=== PATIENT | female | born 1975 | race Caucasian/White ===

== ENCOUNTER → 2020-10-22 10:15 | Outpatient (CLI) | payer OTHER, SELFPAY ==
[2020-10-22 20:26] LABS: Add Manual Diff / Slide Review NO; Basophils Absolute Auto 0 /uL (0-100); Basophils Percent Auto 0.7 % (0-2); Eosinophils Absolute Auto 100 /uL (0-450); Eosinophils Percent Auto 1.8 % (2-4); Hemoglobin 13.8 g/dL (12.0-16.0); Lymphocytes Absolute Auto 1500 /uL (1100-4500); Lymphocytes Percent Auto 28.5 % (25-40); Mean Corpuscular HGB Conc 33.6 % (30-36); Mean Corpuscular Hemoglobin 32.5 PG (26-34); Mean Corpuscular Volume 96.7 fL (80-100); Monocytes Absolute Auto 400 /uL (0-900); Monocytes Percent Auto 8.2 % (3-14); Neutrophils Absolute Auto 3200 /uL (1500-7000); Neutrophils Percent Auto 60.8 % (50-75); Platelet Count 288 X10^3/uL (150-400); Red Blood Cell Count 4.24 X10^6/uL (4.0-5.2); Red Cell Distribution Width 13.7 % (11.6-14.8); White Blood Cell Count 5.3 X10^3/uL (4.5-11.0)
[2020-10-22 20:30] LABS: Alanine Aminotransferase 18 IU/L (<35); Albumin 4.3 g/dL (3.5-5.0); Albumin Globulin Ratio 1.6 (1.0-2.8); Alkaline Phosphatase 54 U/L (38-126); Aspartate Aminotransferase 26 IU/L (14-36); BUN Creatinine Ratio 21.5 (6-22); Bilirubin Total 0.5 mg/dL (0.2-1.3); Blood Urea Nitrogen 17 mg/dL (7-17); Calcium 9.7 mg/dL (8.4-10.2); Carbon Dioxide 28 mmol/L (22-32); Chloride 104 mmol/L (98-107); Estimated Glomerular Filt Rate > 60.0 mL/min (>60); Globulin 2.7 g/dL (1.7-4.1); Glucose 94 mg/dL (70-100); HEMOLYSIS < 15 (0-50); Potassium 4.9 mmol/L (3.4-5.1); Sodium 136 mmol/L (137-145)
[2020-10-22 20:47] LABS: Free T4, Direct Thyroxine 1.61 ng/dL (0.78-2.19)
[2020-10-22 21:01] LABS: Thyroid Stimulating Hormone 0.788 uIU/mL (0.47-4.68)
== END ==
PROVIDERS: Family Provider Obstetrics & Gynecology; PCP Obstetrics & Gynecology; Visit Provider Family Medicine
DX: E03.9 Hypothyroidism, unspecified (principal); F41.9 Anxiety disorder, unspecified; S46.012A Strain of muscle(s) and tendon(s) of the rotator cuff of left shoulder, initial encounter; M70.62 Trochanteric bursitis, left hip
CPT/HCPCS: 80053; 84439; 84443; 85025

== ENCOUNTER → 2021-08-31 08:30 | Outpatient (CLI) | payer OTHER, SELFPAY ==
[2021-08-31 16:02] LABS: COVID19 -Nasal RAPID Negative (Negative)
== END ==
PROVIDERS: Family Provider Obstetrics & Gynecology; PCP Family Medicine; Visit Provider Obstetrics & Gynecology
DX: Z01.812 Encounter for preprocedural laboratory examination (principal); Z20.822 Contact with and (suspected) exposure to COVID-19
CPT/HCPCS: 87635

== ENCOUNTER 2021-09-02 14:30 | Observation (INO) | payer OTHER, SELFPAY ==
[2021-08-26 14:42] VITALS: BMI 23.1
[2021-09-01] VITALS (15 sets, daily range): BP systolic 108–142; BP diastolic 63–88; PULSE 68–102; RESP 14–20; TEMP 35.7–36.9; O2SAT 97–100; BMI 23.1
--- NOTE | 2021-09-01 | PATH_ITS ---
[facility] Accession Number: [id number] . 01 Material submitted: . uterus - UTERUS, BILATERAL FALLOPIAN TUBES . 01 Diagnosis: Uterus, Bilateral Fallopian Tubes, Hysterectomy and Bilateral Salpingectomy (Weight 160 grams): Cervix with no significant histomorphologic abnormality. Endocervix with no significant histomorphologic abnormality. Portions of proliferative endometrium; negative for glandular hyperplasia, cytologic atypia, or malignancy. Myometrium with intramural leiomyomas (up to 30 mm); negative for atypia or malignancy. Serosa with no signficiant histomorphologic abnormality. Right fallopian tube complete cross-section; negative for atypia or malignancy. Left fallopian tube complete cross sections; negative for atypia or malignancy. [facility] 09/07/2021 1405 Local . 01 Electronically signed: . Lisa Fernandez MD, Pathologist NPI- [id number] . 01 Gross description: . Received in formalin in a specimen container labeled with the patient's name and medical record number, uterus, bilateral fallopian tubes, is a 160 gram uterus with attached bilateral fallopian tubes and attached cervix that measure: uterus - 7.0 x 6.0 x 4.5 cm; cervix measures 3.0 cm in length and 3.0 cm in diameter; right fallopian tube measures 6.7 cm in length and 0.7 cm in diameter; right fimbriae measure 1.5 x 1.2 x 0.8 cm; the left fallopian tube measures 5.2 cm in length and 0.5 cm in diameter; left fimbriae measure 1.5 x 1.0 x 0.7 cm. The serosal surface is pink, smooth, and glistening. There is a prominent nodule within the uterine dome that measures 4.3 x 4.0 cm. The parametrium was cauterized and entirely inked in blue. The endocervical lip os is pink, smooth, glistening and grossly unremarkable. The resection margin is entirely inked in blue. The specimen is opened to reveal a herringbone, pink unremarkable cervical mucosa. The endometrial cavity is distorted by the dome leiomyoma and measures 3.5 x 0.5 cm. The endometrial cavity is slightly hemorrhagic. The dome leiomyoma measures 3.0 cm along the opened, cut surface. The cut surfaces are solid pink-brady without calcification or signs of nonviable tissue. Additional leiomyoma measures 1.5 cm is identified within the myometrium cut surfaces. The leiomyoma cut surfaces are pink, smooth, glistening, brady with a whorled pattern without calcification or signs of nonviable areas. The cut surfaces of myometrium are solid, pink, with a slightly irregular pattern. No other distinct lesions are grossly identified. The right fallopian tube serosal surface is pink, smooth, glistening and grossly unremarkable. Cut surfaces are patent, cylindrical with 0.2 cm unremarkable patent lumen. The left fallopian tube serosal surface is pink, smooth, glistening and cut surfaces are patent and cylindrical with 0.2 cm patent lumen. . Refrigerating Technician sections are submitted as follows: . A1-A2: Anterior and posterior cervix. A3: Endomyometrium full-thickness with leiomyoma. A4: Refrigerating Technician of unremarkable endomyometrium full thickness. A5: Dome leiomyoma players club representative. A6: Right fallopian tube and fimbriae. A7: Left fallopian tube and fimbriae. ([id number]) A8: Additional sections for endomyometrium. (KV:[id number]) /FRR 09/06/2021 [facility] Local . 01 Pathologist provided ICD-10: N81.4, R10.2, N81.6, D25.9 . 01 CPT . 601334 Specimen Comment: A courtesy copy of this report has been sent to [phone] Performed at: 01 [facility] [address] [place] [address], [place], [place] [id number] MD Mak Marte MD Phone: [phone]
[2021-09-01] MEDS: LACTATED RINGERS 1,000 ML 100 ML IV ×2 (08:40→14:52)
--- NOTE | 2021-09-01 09:14 | PM.PREOP ---
Pre-operative Note COVID-19 COVID-19 status: Negative Result date/Date tested (Pos, Neg/Pending): 08/31/21 Criteria for continued procedure: Delay expected to result in less-positive ultimate med/surg outcome and Non-surgical alternatives not available or appropriate per current SOC Interval Note History & Physical reviewed/Exam performed by Physician: Yes Changes to H&P: No H&P completed within 30 days and has changed as indicated here:: 08/09/21
[2021-09-01] MEDS: CEFAZOLIN 2 GM/20 ML SYRINGE IV (10:30)
--- NOTE | 2021-09-01 10:57 | SUR.OPER ---
Lithotomy on padded OR bed. [place] Pad Positioner under torso. Head on pillow, arms padded and tucked at sides. Legs secured in padded yellow fins stirrups with heels appropriately positioned. Directed and approved by surgeon.
--- NOTE | 2021-09-01 11:11 | SUR.OPER ---
Malin placed with ease, clear yellow urine was visualized in tubing prior to balloon inflation. Secured to thigh prior to leaving OR.
[2021-09-01] MEDS: BUPIVACAINE 0.5% W/ EPI (PF) 30 ML VIAL INJ (11:22)
--- NOTE | 2021-09-01 13:15 | P.OP_ITS ---
Operative Date/Time/Diagnoses Date of procedure: 09/01/21 Time of procedure: 13:15 Pre-op diagnosis: Symptomatic uterine prolapse Symptomatic cystocele and rectocele Post-op diagnosis: same Procedure & Clinicians Procedure: Procedures Operation Date: 09/01/21 09:45 Actual Procedure Side Surgeon p Laparoscopic Assisted Vag Hysterectomy w. bilateral salpingectomy Marianela Greenfield MD s Anterior and Posterior Repair, sacrospinus ligament fixation Marianela Greenfield MD Indications: Symptomatic uterine prolapse, cystocele, and rectocele Surgeon: Marianela Greenfield Health Informatics Advisor: Traci Garcia Anesthesia Type: General and Local Operative Notes Findings: 8 week size prolapsed uterus Normal tubes and ovaries Third-degree cystocele Third-degree rectocele Significant vaginal vault prolapse Closure Type: primary Specimen(s): left tube, right tube and uterus Applied: catheter (To continuous drainage) and other (Vaginal packing) Estimated blood loss (mL): 100 Blood products transfused: none Procedure in detail: The patient was taken to the operating room where she was placed in the dorsal supine position. After adequate general endotracheal anesthesia was achieved, she was placed in the dorsal lithotomy position, and prepped and draped in the usual sterile fashion. A bivalve speculum was placed into the vagina, and a single-tooth tenaculum was placed on the anterior lip of the cervix. The cervical os was sequentially dilated until the ZUMI uterine manipulator could pass easily into the endometrial cavity. The single-tooth tenaculum was removed from the anterior lip of the cervix, and the bivalve speculum was removed from the vagina. Attention was then turned to the abdomen where 6 mL of half percent Marcaine with epinephrine were injected in the umbilical fold. A 5 mm incision was made. The Veress needle was placed into the peritoneal cavity, and its placement confirmed by aspiration and drop test. The abdominal cavity was insufflated with 4 L of CO2. The Veress needle was removed, and a 5 mm trocar was placed without difficulty. Initial inspection of the pelvis revealed the findings noted above. 2 other incisions were made 4 cm lateral to the umbilicus after 6 cc of 0.5% Marcaine with epinephrine were injected. Two 5 mm trocars were placed under direct visualization. The right tube was grasped with an atraumatic grasper. The mesosalpinx on the right side was cauterized and cut with the power seal. The round ligament and broad ligament were cauterized and cut. This was continued to the level of the uterine arteries. This was repeated on the patient's left side. The instruments were removed from the abdomen. Attention was then turned to the vagina where the ZUMI uterine manipulator was removed from the uterus. The cervix was grasped with a 4 tooth tenaculum. 10 mL of quarter percent Marcaine with epinephrine were injected circumferentially around the cervix. The cervix was circumscribed. The bladder and rectum were dissected off the lower uterine segment and cervix with an open moistened Ray-Gosia. The peritoneum was entered sharply with the Metzenbaum scissors anteriorly and a [place] placed. The peritoneum was entered posteriorly with the Metzenbaum scissors and the long weighted speculum was placed into the posterior cul-de-sac. The uterosacral cardinal ligament complexes were clamped, transected, and suture ligated with 0 Vicryl. These were attached to hemostats. The uterine arteries were clamped, transected, and suture ligated with 0 Vicryl. The uterus was handed off for specimen with the tubes. The vaginal cuff was closed with 0 Vicryl with a series of simple interrupted sutures. The tagged sutures were cut. 2 Allis clamps were placed at the apex of the cystocele. 6 mL of half percent Marcaine with epinephrine were injected and an incision was made with a #10 blade between the 2 Allis clamps. Wide Allis clamps were placed on the midline of the cystocele approximately 7. The mucosa was undermined using the Metzenbaum scissors and the mucosa incised in the midline moving the wide Allis clamps to the edges of the mucosa. The mucosa was dissected off the underlying fascia using an open moistened Ray-Gosia and a #10 blade. The fascia was reapproximated with 0 Vicryl with a series of horizontal mattress sutures. The excess vaginal mucosa was excised. The mucosa was closed using simple interrupted sutures with 2-0 Vicryl including the underlying fascia to close the space. The weighted speculum was removed from the vagina. Allis clamps were placed at the mucocutaneous junction at the introitus. 6 mL of half percent Marcaine with epinephrine were injected. An incision was made with a #10 blade between the 2 Allis clamps, and a triangular piece of skin and underlying subcutaneous tissue was removed. Allis clamps were placed in the midline of the rectocele. 10 mL of half percent Marcaine with epinephrine were injected submucosally. The mucosa was undermined using the Metzenbaum scissors and the mucosa incised in the midline, moving the wide Allis clamps to the mucosal edges. The underlying fascia was dissected off of the mucosa using an open moistened Ray-Gosia and a #10 blade. The space around the sacral spinous ligament was dissected out bluntly by sweeping the adventitia to the midline. Using 2 0 Prolene suture, a stitch was placed 2 cm lateral to the ischial spine in the sacral spinous ligament. This was tagged with a hemostat. The other and the Prolene was placed through the most distal portion of the vaginal mucosa without coming through the entire mucosal layer. The fascia was reapproximated using 0 Vicryl with a series of horizontal mattress sutures. The excess vaginal mucosa was excised. The mucosa was closed using a series of simple interrupted sutures with 2-0 Vicryl including the underlying fascia to close the space. After the first 3 stitches were placed, the sacral spinous ligament stitch was tied down. This pulled the vagina back and to the right. The remainder of the mucosa was closed with 2-0 Vicryl simple interrupted sutures. On the perineum 0 Vicryl was used to reapproximate the levator muscle. The subcutaneous layer was closed with 2-0 Vicryl. The skin was closed with 3-0 chromic in a subcuticular fashion. Hemostasis was achieved. A Betadine moistened vaginal pack was placed into the vagina. A rectal exam was done and there were no sutures palpable in the rectum. The urine was clear. Sponge, lap, and instrument counts were correct x-2. The patient tolerated the procedure well, was taken to PACU in stable condition. Complications: none Post-operative Condition: stable Disposition: PACU Plan for aftercare: To acute care after recovery
[2021-09-01] MEDS: ONDANSETRON 4 MG/2 ML INJ IV (13:27)
[2021-09-01] MEDS: HYDROMORPHONE 2 MG INJ IV ×3 (13:27→13:47)
--- NOTE | 2021-09-01 14:19 | SUR.PHASEI ---
Pt A&Ox4, reports pain as tolerable, VSS, and ready to transfer to room. Report given to receiving RN using SBAR with time allowed for questions. Pt transferred via bed with RN assist. Spouse updated.
[2021-09-01] MEDS: KETOROLAC 30 MG/ML VIAL IV ×2 (14:52→20:02)
[2021-09-01] MEDS: OXYCODONE IR 5 MG TABLET PO ×2 (16:11→17:58)
[2021-09-01] MEDS: ACETAMINOPHEN 325 MG TABLET 650 MG PO (17:56)
[2021-09-01] MEDS: DOCUSATE 100 MG CAPSULE 200 MG PO (20:02)
[2021-09-01] MEDS: LORazepam 1 MG TABLET PO (20:02)
[2021-09-01] MEDS: HYDROMORPHONE 0.5 MG INJ IV (22:11)
[2021-09-02] VITALS: BP 112/69; PULSE 67; RESP 18; TEMP 36.2; O2SAT 98
[2021-09-02] MEDS: HYDROMORPHONE 0.5 MG INJ IV ×4 (01:19→11:30)
[2021-09-02] MEDS: LACTATED RINGERS 1,000 ML 100 ML IV (01:19)
[2021-09-02] MEDS: KETOROLAC 30 MG/ML VIAL IV ×2 (01:58→08:09)
[2021-09-02] MEDS: LEVOTHYROXINE 125 MCG TABLET PO (05:09)
[2021-09-02 05:33] VITALS: BP 115/69; PULSE 69; RESP 18; TEMP 36.6; O2SAT 98
[2021-09-02 05:34] LABS: Add Manual Diff / Slide Review NO; Basophils Absolute Auto 0 /uL (0-100); Basophils Percent Auto 0.1 % (0-2); Eosinophils Absolute Auto 0 /uL (0-450); Eosinophils Percent Auto 0.4 % (2-4); Hematocrit 31.6 % (36-46); Hemoglobin 11.2 g/dL (12.0-16.0); Lymphocytes Absolute Auto 1400 /uL (1100-4500); Lymphocytes Percent Auto 15.2 % (25-40); Mean Corpuscular HGB Conc 35.5 % (30-36); Mean Corpuscular Volume 93.2 fL (80-100); Monocytes Absolute Auto 700 /uL (0-900); Monocytes Percent Auto 7.8 % (3-14); Neutrophils Absolute Auto 7100 /uL (1500-7000); Neutrophils Percent Auto 76.5 % (50-75); Platelet Count 287 X10^3/uL (150-400); Red Blood Cell Count 3.39 X10^6/uL (4.0-5.2); Red Cell Distribution Width 13.1 % (11.6-14.8); White Blood Cell Count 9.3 X10^3/uL (4.5-11.0)
--- NOTE | 2021-09-02 05:41 | PC.NURSE ---
Catheter and vaginal packing removed without issue. No bleeding, clots, or drainage followed. Patient tolerated well.
[2021-09-02] MEDS: DOCUSATE 100 MG CAPSULE 200 MG PO ×2 (08:09→21:20)
--- NOTE | 2021-09-02 09:03 | CM.DANOTE ---
DCP Notes: Payor: Maegan PCP: MD Aden Pt is a 46 y.o. F who was admitted to the floor under [facility] following Hysterectomy. Pt DCP met with pt this morning bedside. Pt laying in bed with spouse at her side. Pt states that she is nauseous. DCP provided her with a emesis bag. Pt states that they took her arreola out this morning and that she is waiting to urinate. Pt states that she lives on [facility] with her spouse, Escobar, and is independent at baseline. Pt declines DME use and states that she still drives. Pt states that she is going to go home to her moms house in [place] following discharge in case she has any complications and needs to come back. Spouse will be driving pt there at discharge. Pt declines any resources at this time. DCP does not identify any needs. White board updated. Instructed to call with any questions. P: Once pt is medically stable for discharge. Pt will discharge to her moms house via spouse POV. Mare Ojeda RN/MARICRUZ Discharge Planning/Care Management CM Discharge Assessment Start: 09/02/21 08:41 Freq: Status: Active Protocol: Document 09/02/21 09:02 SABRINA (Rec: 09/02/21 09:02 AJ [id number]) Discharge Planning Assessment Assigned Customer Advisor Mare Ojeda RN/MARICRUZ Advance Directives? No History Provided By Patient Prior Living Arrangements House Household Members spouse Type of transporation used prior to Drives own vehicle admit Independent with ADL's Yes Is patient alert and oriented? Yes Barriers to Discharge No Discharge Plan Home Referrals Initiated None needed Whiteboard Updated in Patient Room with Yes name and ext. # of Customer Advisor Comment Instructed to call Review Status In Process Please Provide Date Initial DC 09/02/21 Assessment Was Performed Next Review Type Continued Stay Review Pre-Anesthesia Assessment Start: 08/26/21 14:42 Freq: Status: Complete Protocol: Document 08/26/21 14:42 CAB (Rec: 08/26/21 14:47 CAB [id number]) Pre-Anesthesia Assessment Patient Information Reviewed Via Chart Review Comment COVID screen @ 08/31/21 Primary Care Provider Kevyn Samaniego Seen Specialist in Last 12 Months Yes Specialist Seen Double End Sewer Primary Language Hungarian Grade Setter Required No Height 180.34 cm Weight 75.296 kg Body Mass Index (BMI) 23.1 Barriers to Learning None Anesthesia Review Requested No Food Cooking Machine Operator No Smoking Status Never smoker Pain Present Pain Reported Musculoskeletal Symptoms Joint Pain History of Falling (Recent or History of Yes ) Patient is completely paralyzed or No completely immobile Mental Status Oriented to own ability Is patient on oxygen? 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 No Cardiac Clearance Received Not Applicable Urinary Catheter Present No Hx Urinary Self Catheterization No Diabetes No Patient No Lactating No Marital Status Lives With spouse Patient Discharge Plan Description Return Home Comment Lives on [facility]
[2021-09-02 09:35] VITALS: BP 103/73; PULSE 67; RESP 16; TEMP 36.3; O2SAT 99
--- NOTE | 2021-09-02 14:59 | PC.NURSE ---
In and Out cath placed and 700ml light clear urine out, pt jeni well.
[2021-09-02] MEDS: HYDROMORPHONE 2 MG TABLET PO (15:11)
[2021-09-02] MEDS: IBUPROFEN 600 MG TABLET PO ×2 (15:50→21:20)
[2021-09-02] MEDS: ACETAMINOPHEN 325 MG TABLET 650 MG PO (18:28)
[2021-09-02 19:20] VITALS: BP 108/69; PULSE 72; RESP 18; TEMP 36.4; O2SAT 99
--- NOTE | 2021-09-02 22:12 | P.PN_ITS ---
Subjective Subjective Date Patient Seen: 09/02/21 Time Patient Seen: 19:30 Interval history: POD#1 s/p LAVH/Bilat salp/Anterior-Posterior repair/SSLP Has voided up to 200cc, but high residual volumes 400-700cc. Tolerating diet. No nausea/vomiting. Pain control has been an issue all day. Vaginal packing and arreola removed at 6 am this morning Exam Vital Signs (past 8 hours): - 09/02/21 19:20 09/02/21 19:00 Temperature 97.6 F Pulse Rate 72 Respiratory Rate 18 Blood Pressure 108/69 Pulse Oximetry 99 Oxygen Delivery Method Room Air Oxygen Flow Rate 0 Oxygen Delivery Method Room Air Oxygen Flow Rate 0 Narrative Exam Narrative: Generally: Sitting up in bed, no acute distress Lungs: CTA bilat CV: RRR ABD: Soft and flat. Good BS's Incisions: C/D/I with bandages Perineum: Dry Ext: Negative Moy's, no edema Objective Labs Result Diagrams: 09/02/21 05:05 Labs: Laboratory Results - last 24 hr 09/02/21 05:05 WBC 9.3 RBC 3.39 L Hgb 11.2 L Hct 31.6 L MCV 93.2 MCH 33.0 MCHC 35.5 RDW 13.1 Plt Count 287 Neut % (Auto) 76.5 H Lymph % (Auto) 15.2 L Traverse % (Auto) 7.8 Eos % (Auto) 0.4 L Baso % (Auto) 0.1 Neut # (Auto) 7100 H Lymph # (Auto) 1400 Traverse # (Auto) 700 Eos # (Auto) 0 Baso # (Auto) 0 PFSH Medical History (Updated 08/08/21 @ 18:17 by Marianela Greenfield MD) Greater trochanteric bursitis of left hip Strain of tendon of left rotator cuff Surgical History (Updated 10/20/20 @ 11:56 by Karie Ivan CMA) Hx of cosmetic surgery Status post dilation and curettage Status post hernia repair Social History household members: spouse Smoking Status: Never smoker alcohol intake: current Assessment & Plan Post-op Postoperative Procedures: Procedures Operation Date: 09/01/21 09:45 Actual Procedure Side Surgeon p Laparoscopic Assisted Vag Hysterectomy w. bilateral salpingectomy Marianela Greenfield MD s Anterior and Posterior Repair, sacrospinus ligament fixation Marianela Greenfield MD Postoperative day: 1 Postoperative status: urinary retention and marginal pain control Postoperative status narrative: High post void residual volumes Pain management issues Postoperative plan: voiding trials Postoperative plan narrative: Replace arreola Restart voiding trials in am Tramadol for pain Time Spent With Patient Time with patient: 15-24 minutes Quality VTE Deep Vein Thrombosis/Pulmonary Embolism Present on Admission: No
[2021-09-03 01:42] VITALS: BP 110/70; PULSE 74; RESP 18; TEMP 36.4; O2SAT 97
[2021-09-03] MEDS: ACETAMINOPHEN 325 MG TABLET 650 MG PO ×2 (01:44→11:44)
[2021-09-03] MEDS: TRAMADOL 50 MG TABLET 100 MG PO ×3 (02:22→11:44)
[2021-09-03] MEDS: IBUPROFEN 600 MG TABLET PO ×2 (06:45→13:41)
[2021-09-03] MEDS: LEVOTHYROXINE 125 MCG TABLET PO (06:45)
[2021-09-03 08:00] VITALS: BP 110/78; PULSE 74; RESP 17; TEMP 37.2; O2SAT 96
[2021-09-03] MEDS: DOCUSATE 100 MG CAPSULE 200 MG PO (08:13)
--- NOTE | 2021-09-03 12:07 | P.DS_ITS ---
History of Present Illness History of Present Illness Date Patient Seen: 09/03/21 Time Patient Seen: 08:45 Chief complaint: OPB Narrative: Patient is a 46-year-old postop day # 2 status post LAVH/bilateral salpingectomy/anterior-posterior repair/sacral spinous ligament fixation. Yesterday she had high postvoid residuals and had to have the catheter replaced. Her pain is under better control. She is tolerating a diet. No nausea or vomiting. She is ambulating without assistance. Discharge Providers Provider Date of admission: 09/02/21 14:30 Discharge Date: 09/03/21 Primary care physician: Kevyn Samaniego DO Discharge provider: Marianela Greenfield MD Summary Hospital Course Discharge Diagnosis: Uterine prolapse Cystocele and rectocele LAVH with bilateral salpingectomy Anterior and posterior repair Sacral spinous ligament fixation Acute urinary retention Hospital Course: Patient is a 46-year-old 2 para 2 postop day # 2 status post LAVH/bilateral salpingectomy/anterior-posterior repair/sacral spinous ligament fixation. On postop day # 1 she had high postvoid residuals and had to have the catheter replaced. She was able to void between 150 and 225. But had high pos tvoid residuals. The catheter was replaced on postop day # 1. The catheter was removed on postop day # 2. Patient voided 175 cc with 70 cc residual. Her pain is well controlled. No nausea or vomiting. She is ambulating without assistance. Minimal vaginal bleeding. Tolerating a diet. Status at Discharge Cognitive/behavioral status at discharge: oriented Functional status at discharge: independent ambulation Overall status at discharge: patient is progressing back to baseline Time Spent with Patient Time spent: Less than 30 minutes Exam Vital Signs (past 8 hours): - 09/03/21 08:00 Temperature 98.9 F Pulse Rate 74 Respiratory Rate 17 Blood Pressure 110/78 Pulse Oximetry 96 Oxygen Flow Rate 0 Oxygen Delivery Method Room Air Oxygen Flow Rate 0 Narrative Exam Narrative: Generally: Patient lying in bed, no acute distress Lungs: Clear to auscultation bilaterally Cardiovascular: Regular rate and rhythm Abdomen: 3 laparoscopy incisions with dressings in place. Good bowel sounds. Perineum: Dry Extremities: Negative Homans, no edema Objective Labs Result Diagrams: 09/02/21 05:05 [facility] Medical History (Updated 08/08/21 @ 18:17 by Marianela Greenfield MD) Greater trochanteric bursitis of left hip Strain of tendon of left rotator cuff Surgical History (Updated 10/20/20 @ 11:56 by Karie Ivan CMA) Hx of cosmetic surgery Status post dilation and curettage Status post hernia repair Social History household members: spouse Smoking Status: Never smoker alcohol intake: current Discharge Assessment & Plan Assessment and Plan Assessment: Assessment: 46-year-old status post LAVH/bilateral salpingectomy/anterior-posterior repair/sacral spinous ligament fixation Patient doing well on postop day # 2 Urinating without the catheter and low postvoid residuals Plan of Treatment: Plan: Discharge to home Follow-up in 2 weeks by telehealth Prescription sent to [facility] [place] No heavy lifting Patient to call with fever, chills, redness or drainage around the incisions, or bleeding vaginally more than spotting to light Discharge Plan Discharge Plan Patient Disposition: Home Provider Discharge Comment: Call with fever, chills, redness or drainage around the incisions, or bleeding vaginally more than spotting to light Stool softener for 6 weeks Tylenol 650 mg every 6 hours Ibuprofen 600 mg every 6 hours, taken with food or milk No heavy lifting, nothing more than 8 lb. Discharge orders & Medications Prescriptions: New tramadol 100 mg tablet 100 mg PO Q4-6H PRN (Reason: pain) Qty: 20 0RF Rx Instructions: DNExceed 4 doses/24h hydromorphone [Dilaudid] 2 mg tablet 2 mg PO Q4H PRN (Reason: pain) Qty: 20 0RF Continued levothyroxine 125 mcg tablet 125 mcg PO DAILY Qty: 90 3RF lorazepam 1 mg tablet 1 mg PO DAILY PRN (Reason: anxiety) Qty: 20 0RF Rx Instructions: TAKE 1 TABLET (1 MG) BY MOUTH DAILY NEEDED FOR ANXIETY. diclofenac sodium [Arthritis Pain (diclofenac)] 1 % gel 2 g topical QID Rx Instructions: apply to single elbow, wrist or hand; for hand includes palm/fingers/back of hand Discontinued oxycodone 5 mg tablet 5 mg PO Q4H PRN (Reason: pain) Qty: 14 0RF Follow up/Referrals: Marianela Greenfield MD [Family Provider] - (My office will call on Nolan September 05, 2021 to schedule postop visit) Diet/Activity/Treatments Diet: Regular Activity: No heavy lifting, nothing more than a gal of milk Other treatments: Go to the bathroom every 2 to 3 hours. Set an alarm at night to get up and go to the bathroom. Skin/Wound/Dressing Care Report to your healthcare provider any signs of infection, such as:: chills, fever, increased pain, unusual drainage and unusual redness Dressing: Remove outer pink dressings with attached gauze on Sunday morning after a shower Leave Steri-Strips in place until they fall off or 2 week Visit Report/Discharge Packet Instructions: DI for Cystocele and Rectocele Repair, DI for Hysterectomy, DI for Laparoscopy, DI for Nausea -- Adult, DI for Prescription Opioid Use, DI for Taking Pain Medication, DI for Vaginal Hysterectomy Discharge Data Primary Care Provider: Kevyn Samaniego Attending Provider: Marianela Greenfield VTE Deep Vein Thrombosis/Pulmonary Embolism Present on Admission: No
--- NOTE | 2021-09-03 12:38 | CM.DPC ---
DCP Note Cont: Per MD, pt is medically stable for discharge. Pt has been able to void today. Pt will discharge home via spouse POV to her mothers house in . Mare Ojeda RN/DCP
--- NOTE | 2021-09-03 14:50 | PC.NURSE ---
Dea removed this am. Vd 150mls, PVR was 72, about an hour had another and PVR which were about the same. Dr. Greenfield called and given results. Pt can go home. Tolerates diet w/out problems. Po pain meds effective. Up and amb in room without problems. Feels ready to d/c to home. Reviewed d/c packet and pt was told to void frequntly even at night, set an alarm. Questions answered. Pt d/c to home w/spouse. Priority load pass given.
== END 2021-09-03 14:45 | disposition home or self-care (01) ==
LOC: OR 14:41 → AC 14:41
PROVIDERS: Admitting Provider Obstetrics & Gynecology; Family Provider Obstetrics & Gynecology; PCP Family Medicine; Referring Provider Obstetrics & Gynecology; Visit Provider Obstetrics & Gynecology
PROC: 0UT9FZZ Resection of Uterus, Via Natural or Artificial Opening With Percutaneous Endoscopic Assistance (ICD-10-PCS; CPT 57260; principal; 2021-09-01 09:45)
PROC: (CPT 57260; 2021-09-01 09:45)
DX: N81.3 Complete uterovaginal prolapse (principal); E03.9 Hypothyroidism, unspecified
CPT/HCPCS: 57260; 58552; 36415; 85025; G0378; J0690; J1100; J1170; J1885; J2250; J2405; J2704; J3010

== ENCOUNTER → 2021-10-24 11:37 | Outpatient (CLI) | payer OTHER, SELFPAY ==
[2021-09-01 14:22] VITALS: BMI 23.1
[2021-10-24 19:43] LABS: Add Manual Diff / Slide Review NO; Basophils Absolute Auto 0 /uL (0-100); Basophils Percent Auto 0.6 % (0-2); Eosinophils Absolute Auto 100 /uL (0-450); Eosinophils Percent Auto 2.2 % (2-4); Hematocrit 37.9 % (36-46); Hemoglobin 13.2 g/dL (12.0-16.0); Lymphocytes Absolute Auto 1700 /uL (1100-4500); Lymphocytes Percent Auto 28.5 % (25-40); Mean Corpuscular HGB Conc 34.7 % (30-36); Mean Corpuscular Hemoglobin 32.9 PG (26-34); Mean Corpuscular Volume 94.7 fL (80-100); Monocytes Absolute Auto 500 /uL (0-900); Monocytes Percent Auto 8.3 % (3-14); Neutrophils Absolute Auto 3500 /uL (1500-7000); Neutrophils Percent Auto 60.4 % (50-75); Platelet Count 291 X10^3/uL (150-400); Red Cell Distribution Width 13.3 % (11.6-14.8); White Blood Cell Count 5.8 X10^3/uL (4.5-11.0)
[2021-10-24 20:35] LABS: TSH w/ Reflex to FT4 1.09 uIU/mL (0.47-4.68)
== END ==
PROVIDERS: Family Provider Obstetrics & Gynecology; PCP Family Medicine; Visit Provider Family Medicine
DX: D64.9 Anemia, unspecified (principal); E03.9 Hypothyroidism, unspecified; F41.9 Anxiety disorder, unspecified; Z90.710 Acquired absence of both cervix and uterus
CPT/HCPCS: 84443; 85025

== ENCOUNTER 2021-12-07 13:06 | Emergency (ER) | payer OTHER, SELFPAY ==
[2021-09-01 14:22] VITALS: BMI 23.1
[2021-12-07 14:02] LABS: Bacteria Urine None Seen; RBC Urine 0-1/HPF (0-5/HPF); Squamous Epithelial Cell Urine 5-10 /HPF (0-5/HPF); WBC Urine None Seen (0-5/HPF)
== END 2021-12-07 13:36 | disposition home or self-care (01) ==
LOC: ED 12-08 07:59
PROVIDERS: Emergency Medicine; Family Provider Family Medicine; PCP Family Medicine; Referring Provider Obstetrics & Gynecology
DX: R10.2 Pelvic and perineal pain (principal)
CPT/HCPCS: 81015; 87086; 99281

== ENCOUNTER → 2021-12-12 12:47 | Outpatient (CLI) | payer OTHER, SELFPAY ==
[2021-12-07 17:23] VITALS: BMI 23.1
--- NOTE | 2021-12-12 12:48 | DI.MRI.S_ITS ---
PROCEDURE: MR PELIS WO/W CON INDICATIONS: Tailbone pain TECHNIQUE: Coronal HASTE, sagittal T2 FSE, axial T1 FSE. Axial dynamic VIBE during administration of contrast. Post-contrast axial and coronal VIBE/2-D FLASH with fat saturation from the iliac crests to the symphysis. Diffusion weighted imaging and ADC were also performed. COMPARISON: None. FINDINGS: Image quality: Excellent. Bowel and peritoneum: No pathologic free pelvic fluid. Inferior colon and small bowel loops are normal in caliber. Genitourinary system: Bladder wall is normal in thickness. Distal ureters are non distended. Status post hysterectomy. There is a 1.2 cm right adnexal simple cyst. A 0.7 cm simple left adnexal cyst is also seen. Nodes and vessels: No pathologic pelvic or inguinal adenopathy by size criteria. Iliac vessels are normal in caliber. Soft tissues: No inguinal hernias. Bones: No acute osseous contusion or fracture. No suspicious marrow replacing mass or abnormal osseous enhancement. There is chronic osseous fusion of the coccygeal vertebral bodies and the lower sacral vertebral bodies. Degenerative changes are seen in the included portions of the lower lumbar spine with disc desiccation and facet hypertrophy. Sacroiliac joints are intact. Mild degenerative changes at the pubic symphysis. Hips appear symmetric. IMPRESSION: 1. No acute osseous or soft tissue abnormality identified in the pelvis. No source for patient's pain identified. No suspicious enhancing mass. 2. Degenerative changes noted in the included lumbar spine. 3. Bilateral small simple appearing adnexal cysts. Dictated by: Heladio Mcgarry M.D. on 12/13/2021 at 8:30 Approved by: Heladio Mcgarry M.D. on 12/13/2021 at 8:42
== END ==
PROVIDERS: Family Provider Family Medicine; PCP Family Medicine; Referring Provider Obstetrics & Gynecology; Visit Provider Obstetrics & Gynecology
DX: M53.3 Sacrococcygeal disorders, not elsewhere classified (principal); M47.816 Spondylosis without myelopathy or radiculopathy, lumbar region; R10.2 Pelvic and perineal pain; N94.89 Other specified conditions associated with female genital organs and menstrual cycle; G89.29 Other chronic pain
CPT/HCPCS: 72197; A9579

== ENCOUNTER → 2021-12-27 11:36 | Outpatient (CLI) | payer OTHER, SELFPAY ==
[2021-09-01 14:22] VITALS: BMI 23.1
[2021-12-07 17:23] VITALS: BMI 23.1
--- NOTE | 2021-12-27 | DI.MG.S_ITS ---
BILATERAL DIGITAL SCREENING MAMMOGRAM 3D/2D WITH CAD: 12/27/2021 CLINICAL: Routine screening. Family history of breast cancer. Comparison is made to exams dated: 06/29/2016 mammogram, 06/29/2016 ultrasound - [facility], and 12/21/2015 mammogram - [facility]. Both breasts are heterogeneously dense, which may obscure small masses (category c / 51-75% glandular tissue). Current study was also evaluated with a Computer Aided Detection (CAD) system. There is a focal asymmetry in the right breast at 5 o'clock in the retroareolar region. No other significant masses, calcifications, or other findings are seen in either breast. IMPRESSION: INCOMPLETE: NEEDS ADDITIONAL IMAGING EVALUATION The focal asymmetry in the right breast is indeterminate. Additional views with possible ultrasound are recommended. Based on the Tyrer Cuzick model (a risk assessment model) the patient's lifetime risk is 12.5% and her 10 year risk is 2.5%. According to the ACR, ACS, and NCCN guidelines, an annual breast MRI exam along with mammogram is recommended if the patient's lifetime risk is 20% or greater. This exam was interpreted at Station ID: [id number]. NOTE: For mammograms, a report in lay terms will be sent to the patient. Approximately 15% of breast malignancies will not be visualized mammographically. In the management of a palpable breast mass, a negative mammogram must not discourage biopsy of a clinically suspicious lesion. Electronically Signed By: Alexandra dixon/:12/28/2021 13:59:40 letter sent: Additional Imaging Needed ACR BI-RADS Category 0: Incomplete 3340F
== END ==
PROVIDERS: Family Provider Family Medicine; PCP Family Medicine; Referring Provider Family Medicine; Visit Provider Family Medicine
DX: Z12.31 Encounter for screening mammogram for malignant neoplasm of breast (principal); Z80.3 Family history of malignant neoplasm of breast
CPT/HCPCS: 77063; 77067

== ENCOUNTER 2022-01-03 13:45 | Outpatient (RCR) | payer OTHER, SELFPAY ==
[2021-09-01 14:22] VITALS: BMI 23.1
[2021-12-07 17:23] VITALS: BMI 23.1
--- NOTE | 2021-12-27 19:58 | PT.OIE ---
Current Diagnoses Constipation, unspecified (12/27/21) Pain in unspecified hip (12/27/21) Sacrococcygeal disorders, not elsewhere classified (12/27/21) Pelvic and perineal pain (12/27/21) Past Surgical History (Last Reviewed 12/07/21 @ 13:05 by MARIA A Jauregui) Hx of cosmetic surgery Status post dilation and curettage Status post hernia repair Visit Care Team Role Provider Type Arturo Marks MD Family Provider Physician Primary Care Provider Specialty: Family Practice Address: [address] [place] [address], [id number] Email: [email or web address] Marianela Greenfield MD Attending Provider Physician Referring Provider Specialty: Gynecology 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 Max 25/year PT/OT/ST. Visit Start Time 13:00 Visit Stop Time 13:52 Total Visit Minutes 52 Visit Number 03/03 Evaluation Information Evaluation Date 12/27/21 Precautions Precautions PMH Review: Hx of L hip greater trochanteric bursitis. Pt reported 2 vaginal deliveries with coccyx fractures. PT-OP-B Current Condition Start: 12/22/21 19:08 Freq: Status: Active Protocol: Document 12/27/21 13:00 LRN (Rec: 12/27/21 19:47 LRN [id number]) Current Condition History of Current Condition Onset Date 09/01/21 Current Complaints Severe sharp burning pain in the pelvis. History of Current Condition States almost 4 months ago she had a hysterectomy with rectocele and cystocele fix using sacrospinous ligs for repair. Pt now reports coccyx pain. Pt reports initially felt really good and started to play tennis and golf after 2 months, but after 1 week of exercise had onset of fire pain at coccyx radiating into the front of her hips after moving around. Had to sit on donut to alleviates the coccyx pain. Thought scar tissue pain or pudendal nerve entrapped in suture, but Pudendal n. block didn't help. She now uses Advil every 6 hrs. Doesn't want to take Gabapentin. Was leaking urine and feces prior to surgery but s/p surgery has not urine or fecal leakage. Prior Treatments and Tests Advil 600 mg 3x/day since every 6 hrs. Sometimes Tramidol to sleep. No physical therapy prior to surgery, but has had therapy in the past for her incontinence. Developmental History Developmental History Pt is 2 para 2. She reports: coccyx fx during childrenbearing x 2 that eventually resolved, and that X-rays showed fusion of coccyx . Pt states 09/01/21 - status post LAVH/bilateral salpingectomy/anterior- posterior repair/sacral spinous ligament fixation. Treatment Goals Patient/Caregiver Goals Pt goal is: - Decrease Pelvic Pain after sitting, improve sleep, Resume activity with pain 1-2/10. Personal Factors Other Personal Factors That May Effect Pt lives on [facility] with Therapy/Recovery spouse and 2 teenage daughters . 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 PT-OP-C Subjective Start: 12/22/21 19:08 Freq: Status: Active Protocol: Document 12/27/21 13:00 LRN (Rec: 12/27/21 19:47 LRN [id number]) OP-PT Subjective Patient Comments Patient Comments Hasn't taken Advil today. If moves, has sharp firing pain in coccyx radiating to anterior hips. Pain walking, but no pain after sitting ~ 8 minutes. Has pain in entire PF sometimes in bed. No longer leaks urine when coughing. Patient Questionnaires Pelvic Pain and Urgency/Frequency Patient Symptom Scale Pelvic Pain Score 16 OP-PT Pain Assessment Pain Assessment Grid Paper Pain Assessment Grid Completed Yes Location Pelvis Pain Location Details Posterior: SIJ to Coccyx, Anterior: ASIS wrapping around to coccyx L>R Intensity 9 Scale Used Numeric (0 - 10) Description Sharp,Shooting,Stabbing Description- Other No pain with sit rest, severe pain on standing and walking Pain Aggravating Factors Changing Position,Exercise, Standing,Walking Other Pain Aggravating Factors Moving around in bed Pain Alleviating Factors Medication Other Pain Alleviating Factors Advil Comments Pain Comments Pain starts at coccyx and is described as stabbing sharp pain. PT-OP-I Pelvic Floor Start: 12/22/21 19:08 Freq: Status: Active Protocol: Document 12/27/21 13:00 LRN (Rec: 12/27/21 19:47 N [id number]) Pelvic Floor Assessment Urine Pelvic Floor Surgery Yes Other Urinary Symptoms Cystocele repair. Feels a little pressure in lower abdomen. No urinary symptoms Bowel Other Bowel Symptoms Constipation controlled by medication (Miralax). S/P Rectocele repair. Pelvic Clock Pelvic Clock 9-12 Tenderness Pelvic Clock Other Tender superficially: 7-8 of PF Clock. Contraction Ability Manual Muscle Testing Left 1 Manual Muscle Testing Right 3 Manual Muscle Testing Anterior 3 Manual Muscle Testing Posterior 1 Muscle Endurance (Seconds) 10 Comments Pelvic Floor Comments Quick Flicks felt 10x except at PF clock 6-7 O'Clock. Palpation: Pt is most tender medial to her Ischial Tuberosities (Obturator Internus), SIJ's, and at tip of Coccyx. She has mild tenderness of her Piriformis and Gluteal muscles. No significatn tenderness at her anus. PT-OP-J Posture/Palpation/Skin Start: 12/22/21 19:08 Freq: Status: Active Protocol: Document 12/27/21 13:00 LRN (Rec: 12/27/21 19:47 N [id number]) Palpation Assessment Location Coccyx Palpation Location Tip of Coccyx Palpation Findings Tenderness Palpation Details No significant tenderness at sides of coccyx. Obturator Internus Palpation Location Bilateral Obturator Internus Palpation Findings Tenderness Palpation Details Hooklie SIJ Palpation Location Bilateral SIJ (L>R) Palpation Details In Sitting. PT-OP-K Range of Motion Start: 12/22/21 19:08 Freq: Status: Active Protocol: Document 12/27/21 13:00 LRN (Rec: 12/27/21 19:47 N [id number]) Lumbar Spine Range of Motion Lumbar Spine Active Degrees Testing Position Standing Flexion 7 Extension 0 Rotation Left 20 Rotation Right 15 Lateral Flexion Left 7 Lateral Flexion Right 2 ROM Limitations Pain Comments Active trunk flex tolerated to 90 deg's but w/pain Hip Goniometric Range of Motion Hip Right Passive Testing Position Supine Flexion w/Knee Flexed 120 Straight Leg Raise 90 Internal Rotation 30 External Rotation 65 Comments R IR decreased. Flex hip restriction Pain on lowering leg from SLR Left Passive Testing Position Supine Flexion w/Knee Flexed 120 Straight Leg Raise 90 Internal Rotation 30 External Rotation 40 Comments Flex hip restriction Pain on lowering leg from SLR PT-OP-M Strength Start: 12/22/21 19:08 Freq: Status: Active Protocol: Document 12/27/21 13:00 LRN (Rec: 12/27/21 19:47 LRN [id number]) Hip Strength Hip Manual Muscle Testing Right Flexion (L2) 5 Normal External Rotation 4 Good Internal Rotation 3 Fair Left Flexion (L2) 5 Normal External Rotation 4 Good Internal Rotation 3 Fair Comments Pain limits mobility PT-OP-Q Treatments Start: 12/22/21 19:08 Freq: Status: Active Protocol: Document 12/27/21 13:00 LRN (Rec: 12/27/21 19:47 LRN [id number]) Self-Care/Home Management Treatment Education Patient Education Home Exercise Program,Pain Management Other Education Discussed results of evaluation, goals, and plan of care (POC). Pt agreeable to goals and POC. Educated/discussed posturing for sleeping (pillow btn knees ) and sitting with back rest. Discussed use of heat for pain management. Activities Self-Care/Home Management Activities I/S pt in Sit<>Stand with isometric hip AB/ER. PT-OP-T Assessment and Plan Start: 12/22/21 19:08 Freq: Status: Active Protocol: Document 12/27/21 13:00 LRN (Rec: 12/27/21 19:47 LRN [id number]) Physical Therapy Assessment Rehab Potential Rehabilitation Potential Good Evaluation Complexity Number of Personal Factors/Comorbidities 1-2 Number of Body Systems Impaired 3 Clinical Presentation at Evaluation Evolving Impairments Impairments Activity Tolerance,Edema,Pain, Soft Tissue Mobility Goals Three Impairment Interrupted sleep and decreased mobility due to pain Impairment Sleeps 2-3 hours at night due to pain. Pain 9/10 when moving after sitting or with walking Short Term Goal (STG) Improve sleep with pt able to sleep throught the night 7 hour or more. STG Duration 02/12/22 Logging Assistant Goal (LTG) Decrease Pelvic Pain after sitting when coming to a stand or with walking, pain rated 1 -2/10. LTG Duration 03/27/22 Two Impairment Pain 0/10 Impairment Pain 9/10 Short Term Goal (STG) Pt will be educated in relaxation technique of deep breathing to decrease pain 50% . STG Duration 02/12/22 Logging Assistant Goal (LTG) Decrease SIJ and ASIS pain with pt able to resume activity with pain no greater than 1-2/10. LTG Duration 03/27/22 One Impairment Lacks self care and independent HEP. Short Term Goal (STG) Pt will be educated in proper sitting/standing posture. STG Duration 02/12/22 Residential Goal (LTG) Pt will be independent with a self care HEP and educated in proper body mechanics for ADLs . LTG Duration 03/27/22 Assessment Summary Assessment Pt is a 46 yo female, 2 para 2, who presents ~ 3 months s/p surgery for hysterectomy, cystocele and rectocele repair. She presents with soft tissue dysfunction of the PF and mechanical dysfunction of the pelvis/LB with notable L SIJ dysfunction and pain with trunk mobility. The pt is quite tender in her SI joints (L>R) and Obturator Internus. L hip rotation mobilty is more restricted than R hip, but soft tissue tightness appears to be the primary limiting factor in her mobiity . She appears less tender at her coccyx. The pt has a history of constipation that may be a factor in her in pelvic pain. The pt most likely has excessive edema and soft tissue irritation causing her pain primarily with palpation and activity; therefore rehabilitation may take longer than expected, but due to her restrictive insurance limit rehabilitation will probably be hindered. The pt will benefit from skilled physical therapy to achieve the above stated goals . Physical Therapy Plan Frequency and Duration Frequency of Treatment 1x/Week Plan of Care Start Date 12/27/21 Plan of Care End Date 03/27/22 Therapeutic Interventions Therapeutic Interventions Home Exercise Program,Joint Mobilizations,Manual Therapy, Neuromuscular Re-education, Patient/Caregiver Education, Self-Care/Home Management,Soft Tissue Mobilization,Taping, Therapeutic Activities, Therapeutic Exercises Modalities Cold Pack/Ice Massage,Electric Stimulation,Hot Packs, Ultrasound Next Visit Focus/Plan Next Note Type Treatment Note Next Visit Plan Pelvic Pain/SIJ pain rehab. Assess posture, and response to willy hip AB/ER with sit<> stand and use of heat for pain . Pt to try use of ice if no change in pain. Fascial release of PF at/ around R Obturator Internus, L SIJ, LB. Complete hip and core strength assess, and assess for DR. Pt education in bowel management. Gentle stretch to hip rotators , lateral hip and LB (KTC, not Hamstrings due to norm mobility). ?US to decrease PF inflammation: Medial to OI and L SIJ. Check for pelvic positional dysfunction and sacral balance if needed. Core/sacral stabilization. Body mechanics/posture training.
--- NOTE | 2021-12-27 19:59 | PT.OPPOC ---
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 Obstetrics Address: [address] [place] [address], [address] Email: [email or web address] Plan Of Care PT-OP-T Assessment and Plan Start: 12/22/21 19:08 Freq: Status: Active Protocol: Document 12/27/21 13:00 LRN (Rec: 12/27/21 19:47 LRN [id number]) Physical Therapy Assessment Rehab Potential Rehabilitation Potential Good Evaluation Complexity Number of Personal Factors/Comorbidities 1-2 Number of Body Systems Impaired 3 Clinical Presentation at Evaluation Evolving Impairments Impairments Activity Tolerance,Edema,Pain, Soft Tissue Mobility Goals Three Impairment Interrupted sleep and decreased mobility due to pain Impairment Sleeps 2-3 hours at night due to pain. Pain 9/10 when moving after sitting or with walking Short Term Goal (STG) Improve sleep with pt able to sleep throught the night 7 hour or more. STG Duration 02/12/22 Mcc Goal (LTG) Decrease Pelvic Pain after sitting when coming to a stand or with walking, pain rated 1 -2/10. LTG Duration 03/27/22 Two Impairment Pain 0/10 Impairment Pain 9/10 Short Term Goal (STG) Pt will be educated in relaxation technique of deep breathing to decrease pain 50% . STG Duration 02/12/22 Mcc Goal (LTG) Decrease SIJ and ASIS pain with pt able to resume activity with pain no greater than 1-2/10. LTG Duration 03/27/22 One Impairment Lacks self care and independent HEP. Short Term Goal (STG) Pt will be educated in proper sitting/standing posture. STG Duration 02/12/22 Cook Fish And Chips Goal (LTG) Pt will be independent with a self care HEP and educated in proper body mechanics for ADLs . LTG Duration 03/27/22 Assessment Summary Assessment Pt is a 46 yo female, 2 para 2, who presents ~ 3 months s/p surgery for hysterectomy, cystocele and rectocele repair. She presents with soft tissue dysfunction of the PF and mechanical dysfunction of the pelvis/LB with notable L SIJ dysfunction and pain with trunk mobility. The pt is quite tender in her SI joints (L>R) and Obturator Internus. L hip rotation mobilty is more restricted than R hip, but soft tissue tightness appears to be the primary limiting factor in her mobiity . She appears less tender at her coccyx. The pt has a history of constipation that may be a factor in her in pelvic pain. The pt most likely has excessive edema and soft tissue irritation causing her pain primarily with palpation and activity; therefore rehabilitation may take longer than expected, but due to her restrictive insurance limit rehabilitation will probably be hindered. The pt will benefit from skilled physical therapy to achieve the above stated goals . Physical Therapy Plan Frequency and Duration Frequency of Treatment 1x/Week Plan of Care Start Date 12/27/21 Plan of Care End Date 03/27/22 Therapeutic Interventions Therapeutic Interventions Home Exercise Program,Joint Mobilizations,Manual Therapy, Neuromuscular Re-education, Patient/Caregiver Education, Self-Care/Home Management,Soft Tissue Mobilization,Taping, Therapeutic Activities, Therapeutic Exercises Modalities Cold Pack/Ice Massage,Electric Stimulation,Hot Packs, Ultrasound Next Visit Focus/Plan Next Note Type Treatment Note Next Visit Plan Pelvic Pain/SIJ pain rehab. Assess posture, and response to willy hip AB/ER with sit<> stand and use of heat for pain . Pt to try use of ice if no change in pain. Fascial release of PF at/ around R Obturator Internus, L SIJ, LB. Complete hip and core strength assess, and assess for DR. Pt education in bowel management. Gentle stretch to hip rotators , lateral hip and LB (KTC, not Hamstrings due to norm mobility). ?US to decrease PF inflammation: Medial to OI and L SIJ. Check for pelvic positional dysfunction and sacral balance if needed. Core/sacral stabilization. Body mechanics/posture training. Plan of Care Dates Plan of Care Start Date 12/27/21 Plan of Care End Date 03/27/22 Electronically Signed by: Alexandra Springer, PT 12/27/21 1959 If you are in agreement with this Plan of Care, please return a signed and dated copy. I have reviewed this Plan of Care and certify that the skilled therapy services above are required to meet the patient?s needs. Physician Signature Date Printed Name and Credentials Clinical Instructor Signature Printed Name and Credentials
--- NOTE | 2022-01-03 17:23 | PT.OTN ---
Current Diagnoses Constipation, unspecified (01/03/22) Pain in unspecified hip (01/03/22) Sacrococcygeal disorders, not elsewhere classified (01/03/22) Pelvic and perineal pain (01/03/22) Physical Therapy Treatment Note PT-OP-A Visit Information Start: 12/22/21 19:08 Freq: Status: Active Protocol: Document 01/03/22 13:51 LRN (Rec: 01/03/22 17:20 LRN [id number]) Out-Patient Physical Therapy Visit Information Visit Information Visit Type Treatment Note Visit Start Time 13:51 Visit Stop Time 14:33 Total Visit Minutes 42 Visit Number 2/6 Evaluation Information Evaluation Date 12/27/21 Precautions Precautions PMH Review: Hx of L hip greater trochanteric bursitis. Pt reported 2 vaginal deliveries with coccyx fractures. PT-OP-B Current Condition Start: 12/22/21 19:08 Freq: Status: Active Protocol: Document 12/27/21 13:00 LRN (Rec: 12/27/21 19:47 LRN [id number]) Current Condition History of Current Condition Onset Date 09/01/21 Current Complaints Severe sharp burning pain in the pelvis. History of Current Condition States almost 4 months ago she had a hysterectomy with rectocele and cystocele fix using sacrospinous ligs for repair. Pt now reports coccyx pain. Pt reports initially felt really good and started to play tennis and golf after 2 months, but after 1 week of exercise had onset of fire pain at coccyx radiating into the front of her hips after moving around. Had to sit on donut to alleviates the coccyx pain. Thought scar tissue pain or pudendal nerve entrapped in suture, but Pudendal n. block didn't help. She now uses Advil every 6 hrs. Doesn't want to take Gabapentin. Was leaking urine and feces prior to surgery but s/p surgery has not urine or fecal leakage. Prior Treatments and Tests Advil 600 mg 3x/day since every 6 hrs. Sometimes Tramidol to sleep. No physical therapy prior to surgery, but has had therapy in the past for her incontinence. Developmental History Developmental History Pt is 2 para 2. She reports: coccyx fx during childrenbearing x 2 that eventually resolved, and that X-rays showed fusion of coccyx . Pt states 09/01/21 - status post LAVH/bilateral salpingectomy/anterior- posterior repair/sacral spinous ligament fixation. Treatment Goals Patient/Caregiver Goals Pt goal is: - Decrease Pelvic Pain after sitting, improve sleep, Resume activity with pain 1-2/10. Personal Factors Other Personal Factors That May Effect Pt lives on [facility] with Therapy/Recovery spouse and 2 teenage daughters . 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 PT-OP-C Subjective Start: 12/22/21 19:08 Freq: Status: Active Protocol: Document 01/03/22 13:51 LRN (Rec: 01/03/22 17:20 LRN [id number]) OP-PT Subjective Patient Comments Patient Comments Shooting pain with moving. Last night no sleep, no comfortable position. Sharp, piercing and shocking, firing pain in coccyx radiating to anterior hips. Pt reports after last appt she rested and was feeling better, so she went to a alliance party did some mild hip mvmt dancing and by the end of the evening was miserable and has been in a lot of pain since. PT-OP-I Pelvic Floor Start: 12/22/21 19:08 Freq: Status: Active Protocol: Document 12/27/21 13:00 LRN (Rec: 12/27/21 19:47 LRN [id number]) Pelvic Floor Assessment Urine Pelvic Floor Surgery Yes Other Urinary Symptoms Cystocele repair. Feels a little pressure in lower abdomen. No urinary symptoms Bowel Other Bowel Symptoms Constipation controlled by medication (Miralax). S/P Rectocele repair. Pelvic Clock Pelvic Clock 9-12 Tenderness Pelvic Clock Other Tender superficially: 7-8 of PF Clock. Contraction Ability Manual Muscle Testing Left 1 Manual Muscle Testing Right 3 Manual Muscle Testing Anterior 3 Manual Muscle Testing Posterior 1 Muscle Endurance (Seconds) 10 Comments Pelvic Floor Comments Quick Flicks felt 10x except at PF clock 6-7 O'Clock. Palpation: Pt is most tender medial to her Ischial Tuberosities (Obturator Internus), SIJ's, and at tip of Coccyx. She has mild tenderness of her Piriformis and Gluteal muscles. No significatn tenderness at her anus. PT-OP-J Posture/Palpation/Skin Start: 12/22/21 19:08 Freq: Status: Active Protocol: Document 12/27/21 13:00 LRN (Rec: 12/27/21 19:47 LRN [id number]) Palpation Assessment Location Coccyx Palpation Location Tip of Coccyx Palpation Findings Tenderness Palpation Details No significant tenderness at sides of coccyx. Obturator Internus Palpation Location Bilateral Obturator Internus Palpation Findings Tenderness Palpation Details Hooklie SIJ Palpation Location Bilateral SIJ (L>R) Palpation Details In Sitting. PT-OP-K Range of Motion Start: 12/22/21 19:08 Freq: Status: Active Protocol: Document 12/27/21 13:00 LRN (Rec: 12/27/21 19:47 LRN [id number]) Lumbar Spine Range of Motion Lumbar Spine Active Degrees Testing Position Standing Flexion 7 Extension 0 Rotation Left 20 Rotation Right 15 Lateral Flexion Left 7 Lateral Flexion Right 2 ROM Limitations Pain Comments Active trunk flex tolerated to 90 deg's but w/pain Hip Goniometric Range of Motion Hip Right Passive Testing Position Supine Flexion w/Knee Flexed 120 Straight Leg Raise 90 Internal Rotation 30 External Rotation 65 Comments R IR decreased. Flex hip restriction Pain on lowering leg from SLR Left Passive Testing Position Supine Flexion w/Knee Flexed 120 Straight Leg Raise 90 Internal Rotation 30 External Rotation 40 Comments Flex hip restriction Pain on lowering leg from SLR PT-OP-M Strength Start: 12/22/21 19:08 Freq: Status: Active Protocol: Document 12/27/21 13:00 LRN (Rec: 12/27/21 19:47 LRN [id number]) Hip Strength Hip Manual Muscle Testing Right Flexion (L2) 5 Normal External Rotation 4 Good Internal Rotation 3 Fair Left Flexion (L2) 5 Normal External Rotation 4 Good Internal Rotation 3 Fair Comments Pain limits mobility PT-OP-Q Treatments Start: 12/22/21 19:08 Freq: Status: Active Protocol: Document 01/03/22 13:51 LRN (Rec: 01/03/22 17:20 LRN [id number]) Therapeutic Exercises Prone Exercises TA tightening Prone Exercise Name TA tightening - transferring prone to stand Comments v cuing needed NOVA Prone Exercise Name NOVA with pt on pillow Reps/Minutes 5x Manual Therapy Treatment Soft Tissue Mobilization Obturatur Internus Body Location Bilateral OI Mobilization Type Sustained Pressure,Trigger Point Release Intensity/Depth Superficial Body Position Prone on pillow Comments R OI released quickly L OI responded but didn't fully release until Sustained pressure at R L4-L5 Trp's. QL Body Location R QL at Lumbar spine Mobilization Type Sustained Pressure Intensity/Depth Superficial>Moderate Body Position Prone on pillow Comments Noteable relaxation of L OI with R QL treatment. Gluteals/Piriformis Body Location Gluteals/Piriformis, L>R Mobilization Type Strumming Intensity/Depth Superficial>Moderate Body Position Prone on pillow Lumbar Paraspinals Body Location Lumbar Paraspinals, L>R Mobilization Type Strumming Intensity/Depth Superficial>Moderate Body Position Prone on pillow Joint Mobilizations Sacrum Direction Extension of Sacrum Grade I Reps/Duration Throughout treatment Comments Pt treatment: Prone on pillow Manual Traction L5-S1 Details Sacral distraction from L5 Comments Pt treatment: Prone on pillow Relieve of pain with manual sacral distraction Self-Care/Home Management Treatment Education Patient Education Pain Management,Posture Other Education Educated pt in pain management with discussion on negative effects of progression of activity too quickly, placing stress/strain on body/LB- pelvis. Encouraged pt to focus on pain relief via activity modification ( reducing sitting, driving, lifting, carrying, etc...) and recommended increase use of modalities of cryotherapy and heat to decrease pain. Educated pt in proper sitting posture with use of small roll behind the small of the back for support during sitting. Activities Self-Care/Home Management Activities I/S pt become more aware of possible effects of activities before doing them and recommended minimal activity until pain decreases, followed by slow increase in activity whether she feels pain or not. Educated pt in proper sitting posture and use of TA/Core to stabilize lumbopelvic region during movement. I/S pt to walk with smaller step lengths I/S pt to carry objects at umbilical level to reduce LB strain. I/S pt in use of relaxation technique of deep breathing to help decrease pain. PT-OP-T Assessment and Plan Start: 12/22/21 19:08 Freq: Status: Active Protocol: Document 01/03/22 13:51 LRN (Rec: 01/03/22 17:20 LRN [id number]) Physical Therapy Assessment Goals Three Impairment Interrupted sleep and decreased mobility due to pain Impairment Sleeps 2-3 hours at night due to pain. Pain 9/10 when moving after sitting or with walking Short Term Goal (STG) Improve sleep with pt able to sleep throught the night 7 hour or more. STG Duration 02/12/22 Emergency Room Tech Goal (LTG) Decrease Pelvic Pain after sitting when coming to a stand or with walking, pain rated 1 -2/10. 01/03/22: Educated pt in use of core stabilization for pain management. Pt able to avoid sharp shooting pain after treatment upon sit<>stand with TA tight. LTG Duration 03/27/22 (Progressing 01/03/22 ) Two Impairment Pain 0/10 Impairment Pain 9/10 Short Term Goal (STG) Pt will be educated in relaxation technique of deep breathing to decrease pain 50% . \ 01/03/22: I/S pt in use of deep breathing for relaxation and to help with pain management. STG Duration 02/12/22 (Progressing ) Emergency Room Tech Goal (LTG) Decrease SIJ and ASIS pain with pt able to resume activity with pain no greater than 1-2/10. LTG Duration 03/27/22 One Impairment Lacks self care and independent HEP. Short Term Goal (STG) Pt will be educated in proper sitting/standing posture. 01/03/22: Pt educated in proper sitting posture. STG Duration 02/12/22 (Progressing 01/03/22 ) Fci Goal (LTG) Pt will be independent with a self care HEP and educated in proper body mechanics for ADLs . LTG Duration 03/27/22 Assessment Summary Assessment Pt presents ~ 3 months s/p surgery for hysterectomy, cystocele and rectocele repair . She shows signs of possible lumbar involvement with reduction of pain on gentle L5 -S1 traction, by gentle distraction of sacrum. Pt also finds some relief of low back discomfort mobilizing sacrum into extension. Pt pain centralized to LB after treatment but fairly quickly began to radiate down the LLE. Pt was able to manage some of her pain by abdominally bracing and core stabilizing. Unfortunately, her traveling on the [facility] back and forth from [facility] may hinder her ability to progress . The pt has a lot of soft tissue dysfunction that is causing low tolerance to therapy; therefore preventing further special testing. Physical Therapy Plan Frequency and Duration Frequency of Treatment 1x/Week Plan of Care Start Date 12/27/21 Plan of Care End Date 03/27/22 Next Visit Focus/Plan Next Note Type Treatment Note Next Visit Plan ?L5-S1 dysfunction/Pelvic Pain /SIJ pain rehab. Assess response to willy hip AB/ER with sit<>stand and use of heat for pain. Pt to try use of ice if no change in pain. Complete hip and core strength assess, and assess for DRNela Fascial release of PF around del: Obturator Internus, QL, Iliopsoas, L SIJ, LB. Pt education in bowel management. Gentle stretch to hip rotators , lateral hip and LB (KTC, not Hamstrings due to norm mobility). ?US to decrease PF inflammation: Medial to OI and L SIJ. Check for pelvic positional dysfunction and sacral balance if needed. Core/sacral stabilization. Body mechanics/posture training.
--- NOTE | 2022-04-21 16:41 | PT.OPDS ---
Current Diagnoses Constipation, unspecified (01/03/22) Pain in unspecified hip (01/03/22) Sacrococcygeal disorders, not elsewhere classified (01/03/22) Pelvic and perineal pain (01/03/22) Visit Care Team Role Provider Type Arturo Marks MD Family Provider Physician Primary Care Provider Specialty: Family Practice Address: [address] [place] [address], [id number] Email: [email or web address] Marianela Greenfield MD Attending Provider Physician Referring Provider Specialty: Gynecology [employer] Obstetrics Address: [address] [place] [address], [address] Email: [email or web address] Visit Number Visit Number 04/03 Discharge Summary PT-OP-B Current Condition Start: 12/22/21 19:08 Freq: Status: Active Protocol: Document 12/27/21 13:00 LRN (Rec: 12/27/21 19:47 LRN [id number]) Current Condition History of Current Condition Onset Date 09/01/21 Current Complaints Severe sharp burning pain in the pelvis. History of Current Condition States almost 4 months ago she had a hysterectomy with rectocele and cystocele fix using sacrospinous ligs for repair. Pt now reports coccyx pain. Pt reports initially felt really good and started to play tennis and golf after 2 months, but after 1 week of exercise had onset of fire pain at coccyx radiating into the front of her hips after moving around. Had to sit on donut to alleviates the coccyx pain. Thought scar tissue pain or pudendal nerve entrapped in suture, but Pudendal n. block didn't help. She now uses Advil every 6 hrs. Doesn't want to take Gabapentin. Was leaking urine and feces prior to surgery but s/p surgery has not urine or fecal leakage. Prior Treatments and Tests Advil 600 mg 3x/day since every 6 hrs. Sometimes Tramidol to sleep. No physical therapy prior to surgery, but has had therapy in the past for her incontinence. Developmental History Developmental History Pt is 2 para 2. She reports: coccyx fx during childrenbearing x 2 that eventually resolved, and that X-rays showed fusion of coccyx . Pt states 09/01/21 - status post LAVH/bilateral salpingectomy/anterior- posterior repair/sacral spinous ligament fixation. Treatment Goals Patient/Caregiver Goals Pt goal is: - Decrease Pelvic Pain after sitting, improve sleep, Resume activity with pain 1-2/10. Personal Factors Other Personal Factors That May Effect Pt lives on [facility] with Therapy/Recovery spouse and 2 teenage daughters . 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 PT-OP-C Subjective Start: 12/22/21 19:08 Freq: Status: Active Protocol: Document 01/03/22 13:51 LRN (Rec: 01/03/22 17:20 LRN [id number]) OP-PT Subjective Patient Comments Patient Comments Shooting pain with moving. Last night no sleep, no comfortable position. Sharp, piercing and shocking, firing pain in coccyx radiating to anterior hips. Pt reports after last appt she rested and was feeling better, so she went to a alliance party did some mild hip mvmt dancing and by the end of the evening was miserable and has been in a lot of pain since. PT-OP-I Pelvic Floor Start: 12/22/21 19:08 Freq: Status: Active Protocol: Document 12/27/21 13:00 LRN (Rec: 12/27/21 19:47 LRN [id number]) Pelvic Floor Assessment Urine Pelvic Floor Surgery Yes Other Urinary Symptoms Cystocele repair. Feels a little pressure in lower abdomen. No urinary symptoms Bowel Other Bowel Symptoms Constipation controlled by medication (Miralax). S/P Rectocele repair. Pelvic Clock Pelvic Clock 9-12 Tenderness Pelvic Clock Other Tender superficially: 7-8 of PF Clock. Contraction Ability Manual Muscle Testing Left 1 Manual Muscle Testing Right 3 Manual Muscle Testing Anterior 3 Manual Muscle Testing Posterior 1 Muscle Endurance (Seconds) 10 Comments Pelvic Floor Comments Quick Flicks felt 10x except at PF clock 6-7 O'Clock. Palpation: Pt is most tender medial to her Ischial Tuberosities (Obturator Internus), SIJ's, and at tip of Coccyx. She has mild tenderness of her Piriformis and Gluteal muscles. No significatn tenderness at her anus. PT-OP-J Posture/Palpation/Skin Start: 12/22/21 19:08 Freq: Status: Active Protocol: Document 12/27/21 13:00 LRN (Rec: 12/27/21 19:47 LRN [id number]) Palpation Assessment Location Coccyx Palpation Location Tip of Coccyx Palpation Findings Tenderness Palpation Details No significant tenderness at sides of coccyx. Obturator Internus Palpation Location Bilateral Obturator Internus Palpation Findings Tenderness Palpation Details Hooklie SIJ Palpation Location Bilateral SIJ (L>R) Palpation Details In Sitting. PT-OP-K Range of Motion Start: 12/22/21 19:08 Freq: Status: Active Protocol: Document 12/27/21 13:00 LRN (Rec: 12/27/21 19:47 LRN [id number]) Lumbar Spine Range of Motion Lumbar Spine Active Degrees Testing Position Standing Flexion 7 Extension 0 Rotation Left 20 Rotation Right 15 Lateral Flexion Left 7 Lateral Flexion Right 2 ROM Limitations Pain Comments Active trunk flex tolerated to 90 deg's but w/pain Hip Goniometric Range of Motion Hip Right Passive Testing Position Supine Flexion w/Knee Flexed 120 Straight Leg Raise 90 Internal Rotation 30 External Rotation 65 Comments R IR decreased. Flex hip restriction Pain on lowering leg from SLR Left Passive Testing Position Supine Flexion w/Knee Flexed 120 Straight Leg Raise 90 Internal Rotation 30 External Rotation 40 Comments Flex hip restriction Pain on lowering leg from SLR PT-OP-M Strength Start: 12/22/21 19:08 Freq: Status: Active Protocol: Document 12/27/21 13:00 LRN (Rec: 12/27/21 19:47 LRN [id number]) Hip Strength Hip Manual Muscle Testing Right Flexion (L2) 5 Normal External Rotation 4 Good Internal Rotation 3 Fair Left Flexion (L2) 5 Normal External Rotation 4 Good Internal Rotation 3 Fair Comments Pain limits mobility PT-OP-T Assessment and Plan Start: 12/22/21 19:08 Freq: Status: Active Protocol: Document 04/21/22 16:34 LRN (Rec: 04/21/22 16:41 LRN [id number]) Physical Therapy Assessment Goals Three Impairment Interrupted sleep and decreased mobility due to pain Impairment Sleeps 2-3 hours at night due to pain. Pain 9/10 when moving after sitting or with walking Short Term Goal (STG) Improve sleep with pt able to sleep throught the night 7 hour or more. STG Duration 02/12/22 (04/21/22: NOT GOAL MET) Representative Personal Service Goal (LTG) Decrease Pelvic Pain after sitting when coming to a stand or with walking, pain rated 1 -2/10. 01/03/22: Educated pt in use of core stabilization for pain management. Pt able to avoid sharp shooting pain after treatment upon sit<>stand with TA tight. LTG Duration 03/27/22 (Progressing 01/03/22 , 04/21/22: NOT GOAL MET) Two Impairment Pain 0/10 Impairment Pain 9/10 Short Term Goal (STG) Pt will be educated in relaxation technique of deep breathing to decrease pain 50% . \ 01/03/22: I/S pt in use of deep breathing for relaxation and to help with pain management. STG Duration 02/12/22 (Progressing , 04/21/22: NOT GOAL MET) Usp Goal (LTG) Decrease SIJ and ASIS pain with pt able to resume activity with pain no greater than 1-2/10. LTG Duration 03/27/22 (04/21/22: NOT GOAL MET) One Impairment Lacks self care and independent HEP. Short Term Goal (STG) Pt will be educated in proper sitting/standing posture. 01/03/22: Pt educated in proper sitting posture. STG Duration 02/12/22 (Progressing 01/03/22 , 04/21/22: NOT GOAL MET) Usp Goal (LTG) Pt will be independent with a self care HEP and educated in proper body mechanics for ADLs . LTG Duration 03/27/22 (04/21/22: NOT GOAL MET) Assessment Summary Assessment Pt was seen for 1 treatment visit on 01/03/22. She had called and left message that she will be seen at the clinic on the [place] and was waiting on MRI results. Pt has not returned for further therapy and her plan of care . The pt is being discharged from therapy. The pt will need a new referral to return for her hysterectomy , cystocele and rectocele repair physical therapy rehab. Physical Therapy Plan Discharge Physical Therapy Discharge Reasons No Longer Attending PT Discharge Comments Thank you for your referral.
== END 2022-04-24 09:43 | disposition home or self-care (01) ==
LOC: PHYS 13:45
PROVIDERS: Family Provider Family Medicine; PCP Family Medicine; Referring Provider Obstetrics & Gynecology; Visit Provider Obstetrics & Gynecology
DX: R10.2 Pelvic and perineal pain (principal); M53.3 Sacrococcygeal disorders, not elsewhere classified; K59.00 Constipation, unspecified; M25.559 Pain in unspecified hip
CPT/HCPCS: 97140; 97162; 97535

== ENCOUNTER → 2022-01-18 16:38 | Outpatient (CLI) | payer OTHER, SELFPAY ==
[2021-12-07 17:23] VITALS: BMI 23.1
--- NOTE | 2022-01-18 16:44 | DI.MRI.S_ITS ---
PROCEDURE: MR LUMBAR SPINE WO CON INDICATIONS: ADD VIEWS RIGHT/LUMBAR FORAMINAL STENOSIS TECHNIQUE: Noncontrast sagittal T1 spin echo and T2 fast echo, sagittal STIR, and T2 fast spin echo through the lumbar spine. In cases with scoliosis, additional coronal T2 fast spin echo may be performed. COMPARISON: None. FINDINGS: Image quality: Excellent. Alignment and Curvature: Trace grade 1 anterior stone of spondylolisthesis L4-5 Bone Marrow: Marrow is of normal overall signal. No acute vertebral body compression fractures. Spinal Cord: Conus medullaris terminates at the L1 level. Visualized cord demonstrates normal signal and size. Paraspinous Soft Tissues: No paravertebral masses. T12-L1: Normal appearance. L1-L2: Normal appearance. L2-L3: Normal appearance. L3-L4: Normal appearance. L4-L5: Disc height is maintained. Mild circumferential disc bulge and hypertrophic facet joints results in mild central stenosis. No foraminal stenosis L5-S1: Disc space narrowing and hypertrophic facet joints present. No central stenosis. No foraminal stenosis IMPRESSION: Mild degenerative disc disease and arthropathy without significant central or foraminal stenosis Approved by: Demetrio Yu M.D. on 01/18/2022 at 17:15
== END ==
PROVIDERS: Family Provider Family Medicine; PCP Family Medicine; Referring Provider Physical Medicine & Rehabilitation Pain Medicine; Visit Provider Physical Medicine & Rehabilitation Pain Medicine
DX: M48.061 Spinal stenosis, lumbar region without neurogenic claudication (principal); M51.36 Other intervertebral disc degeneration, lumbar region; M47.816 Spondylosis without myelopathy or radiculopathy, lumbar region
CPT/HCPCS: 72148

== ENCOUNTER → 2022-01-24 09:53 | Outpatient (CLI) | payer OTHER, SELFPAY ==
[2021-12-07 17:23] VITALS: BMI 23.1
--- NOTE | 2022-01-24 | DI.US.S_ITS ---
ULTRASOUND OF RIGHT BREAST AND AXILLA: 01/24/2022 CLINICAL: Patient returns today to evaluate a focal asymmetry in the right breast. Comparison is made to exams dated: 01/24/2022 mammogram, 12/27/2021 mammogram - [facility], and 12/21/2015 mammogram - [facility]. Ultrasound of the right breast axilla was performed. There is a 0.8 cm x 0.3 cm mass in the right breast at 5 o'clock in the retroareolar region. This mass is hypoechoic. This correlates with mammography findings. Color flow imaging demonstrates that there is vascularity present. Suspected surrounding dilated ducts are present. A prominent axillary lymph node measures up to 10mm in short axis. IMPRESSION: SUSPICIOUS OF MALIGNANCY The 0.8 cm x 0.3 cm mass in the right breast is at a low suspicion for malignancy. An ultrasound guided biopsy is recommended. There are suspected surrounding dilated ducts. This may represent an intraductal mass. A prominent lymph node is seen in the axilla measuring at the upper limit of normal, 10mm in short axis. This can be further worked up pending breast biopsy results This exam was interpreted at Station ID: [id number]. Electronically Signed By: Bartolo Bruner M.D. lc/:01/24/2022 12:02:54 letter sent: Biopsy Required Ultrasound BI-RADS: 4a Low suspicion for malignancy
--- NOTE | 2022-01-24 | DI.MG.S_ITS ---
UNILATERAL RIGHT DIGITAL DIAGNOSTIC MAMMOGRAM 3D/2D WITH ADDITIONAL VIEWS: 01/24/2022 CLINICAL: Additional evaluation requested from prior study. Comparison is made to exams dated: 12/27/2021 mammogram - [facility], 06/29/2016 mammogram - [facility], and 12/21/2015 mammogram - [facility]. The right breast is heterogeneously dense, which may obscure small masses (category c / 51-75% glandular tissue). There is a focal asymmetry in the right breast at 5 o'clock in the retroareolar region. No other significant masses or calcifications are seen in the breast. IMPRESSION: INCOMPLETE: NEEDS ADDITIONAL IMAGING EVALUATION The focal asymmetry in the right breast is indeterminate. An ultrasound is recommended. Based on the Tyrer Cuzick model (a risk assessment model) the patient's lifetime risk is 12.5% and her 10 year risk is 2.5%. According to the ACR, ACS, and NCCN guidelines, an annual breast MRI exam along with mammogram is recommended if the patient's lifetime risk is 20% or greater. This exam was interpreted at Station ID: [id number]. NOTE: For mammograms, a report in lay terms will be sent to the patient. Approximately 15% of breast malignancies will not be visualized mammographically. In the management of a palpable breast mass, a negative mammogram must not discourage biopsy of a clinically suspicious lesion. Electronically Signed By: Bartolo Bruner M.D. lc/:01/24/2022 11:56:32 letter sent: Additional Imaging Needed ACR BI-RADS Category 0: Incomplete [id number]
== END ==
PROVIDERS: Family Provider Family Medicine; PCP Family Medicine; Referring Provider Family Medicine; Visit Provider Family Medicine
DX: R92.8 Other abnormal and inconclusive findings on diagnostic imaging of breast (principal); N63.14 Unspecified lump in the right breast, lower inner quadrant
CPT/HCPCS: 76642; 77065; G0279

== ENCOUNTER → 2024-05-27 09:58 | Outpatient (CLI) | payer BC, SELFPAY ==
[2021-12-07 17:23] VITALS: BMI 23.1
[2024-05-27 19:57] LABS: Add Manual Diff / Slide Review NO; Basophils Absolute Auto 100 /uL (0-100); Basophils Percent Auto 1.5 % (0-2); Eosinophils Absolute Auto 100 /uL (0-450); Eosinophils Percent Auto 1.4 % (2-4); Hematocrit 39.3 % (36-46); Hemoglobin 13.6 g/dL (12.0-16.0); Lymphocytes Absolute Auto 1300 /uL (1100-4500); Lymphocytes Percent Auto 28.9 % (25-40); Mean Corpuscular HGB Conc 34.5 % (30-36); Mean Corpuscular Hemoglobin 33.1 PG (26-34); Mean Corpuscular Volume 95.7 fL (80-100); Monocytes Absolute Auto 400 /uL (0-900); Monocytes Percent Auto 8.8 % (3-14); Neutrophils Absolute Auto 2700 /uL (1500-7000); Neutrophils Percent Auto 59.4 % (50-75); Platelet Count 290 X10^3/uL (150-400); Red Blood Cell Count 4.11 X10^6/uL (4.0-5.2); Red Cell Distribution Width 13.4 % (11.6-14.8); White Blood Cell Count 4.5 X10^3/uL (4.5-11.0)
[2024-05-27 20:09] LABS: BUN Creatinine Ratio 21.9 (6-22); Blood Urea Nitrogen 16 mg/dL (7-17); Calcium 9.5 mg/dL (8.4-10.2); Carbon Dioxide 24 mmol/L (22-32); Chloride 104 mmol/L (98-107); Cholesterol 208 mg/dL (140-199); Estimated Glomerular Filt Rate > 60 mL/min (>60); Glucose 94 mg/dL (70-100); HDL Cholesterol 92 mg/dL (40-60); HEMOLYSIS < 15 (0-50); LDL Cholesterol Calculated 102 mg/dL (<100); Potassium 4.4 mmol/L (3.4-5.1); Sodium 136 mmol/L (137-145); Triglycerides 68 mg/dL (35-150)
[2024-05-27 20:34] LABS: TSH w/ Reflex to FT4 0.08 uIU/mL (0.47-4.68)
[2024-05-27 21:02] LABS: Free T4, Direct Thyroxine 1.35 ng/dL (0.78-2.19)
== END ==
PROVIDERS: Family Provider Family Medicine; PCP Family Medicine; Visit Provider Family Medicine
DX: E03.9 Hypothyroidism, unspecified (principal); F90.2 Attention-deficit hyperactivity disorder, combined type; F33.0 Major depressive disorder, recurrent, mild; F41.1 Generalized anxiety disorder; Z13.220 Encounter for screening for lipoid disorders
CPT/HCPCS: 80048; 80061; 84439; 84443; 85025

== ENCOUNTER → 2024-08-13 11:20 | Outpatient (CLI) | payer BC, SELFPAY ==
[2021-12-07 17:23] VITALS: BMI 23.1
== END ==
PROVIDERS: PCP Family Medicine; Visit Provider Family Medicine
DX: E03.9 Hypothyroidism, unspecified (principal); Z71.85 Encounter for immunization safety counseling
CPT/HCPCS: 84443; 86787

== ENCOUNTER → 2024-12-16 14:19 | Outpatient (CLI) | payer BC, SELFPAY ==
[2021-12-07 17:23] VITALS: BMI 23.1
[2024-12-16 19:25] LABS: HEMOLYSIS < 15 (0-50)
[2024-12-16 19:42] LABS: Blood Urea Nitrogen 13 mg/dL (7-17); Calcium 9.6 mg/dL (8.4-10.2); Carbon Dioxide 23 mmol/L (22-32); Chloride 100 mmol/L (98-107); Estimated Glomerular Filt Rate > 60 mL/min (>60); Glucose 90 mg/dL (70-99); Potassium 3.9 mmol/L (3.4-5.1); Sodium 134 mmol/L (137-145)
[2024-12-16 19:47] LABS: Free T3, Triiodothyronine Free 3.16 pg/mL (2.77-5.27)
[2024-12-16 20:01] LABS: TSH w/ Reflex to FT4 0.59 uIU/mL (0.47-4.68)
== END ==
PROVIDERS: PCP Family Medicine; Visit Provider Family Medicine
DX: E03.9 Hypothyroidism, unspecified (principal); F90.2 Attention-deficit hyperactivity disorder, combined type
CPT/HCPCS: 80048; 84443; 84481; 84482